=== PATIENT | female | born 1975 | race Caucasian/White ===

== ENCOUNTER 2017-05-12 19:35 | Emergency (ER) | END 2017-05-13 02:10 | disposition home or self-care (01) | DX: R51 Headache (principal); R40.2252 Coma scale, best verbal response, oriented, at arrival to emergency department; R07.9 Chest pain, unspecified; R40.2142 Coma scale, eyes open, spontaneous, at arrival to emergency department; R40.2362 Coma scale, best motor response, obeys commands, at arrival to emergency department | CPT/HCPCS: 70450; 71010; 80053; 83690; 84439; 84443; 84481; 84484; 85025; 93005; Z7502; Z7610 ==

== ENCOUNTER 2017-11-28 13:03 | Emergency (ER) | END 2017-11-28 17:04 | disposition home or self-care (01) ==

== ENCOUNTER 2017-12-18 12:03 | Emergency (ER) | END 2017-12-18 12:22 | disposition home or self-care (01) ==

== ENCOUNTER 2018-08-08 15:59 | Emergency (ER) | END 2018-08-08 19:19 | disposition home or self-care (01) ==

== ENCOUNTER 2019-04-03 12:14 | Emergency (ER) | payer OTHER ==
[~2019-04-03] VITALS: Ht 162.6 cm; Wt 82.7 kg
[~2019-04-03 12:14] MED LIST: ALBU8.5H8 INH; AMOX500C2 PO; ATEN-51 PO; CYCL5TAB PO; IBUP-1542 PO; IBUP-1561 PO; METH10TA5 PO; PRED20TA PO; PROM5SYR2 PO
[2019-04-03 13:01] VITALS: BP 151/74; PULSE 73; RESP 18; Ht 162.6 cm; Wt 82.7 kg
[2019-04-03] MEDS ORDERED: ALBU18HF INHALATION (13:21)
[2019-04-03] MEDS ORDERED: D-ME118S24 PO (13:21)
--- NOTE | 2019-04-03 13:38 | ERD ---
ER Documentation Chief Complaint Chief Complaint cough x1wk, geting worse HPI 43-year-old female presents for cough x1 week. She does have a history of asthma as a child. She states that the cough is dry. She has no fever or runny nose. Denies chest pain or shortness of breath. She took some NyQuil at home without relief. She has had similar symptoms in the past and was given a breathing treatment for an asthma attack and states that she felt better. Currently states that her symptoms are not as bad as previous. No other modifying factors noted, no other treatments tried at home. ROS All systems reviewed and are negative except as per history of present illness. Medications Home Meds Active Scripts Albuterol Sulfate* (Ventolin HFA*) 18 Gm Hfa.aer.ad, 2 PUFF INHALATION Q4H PRN for shortness of breath/cough, #1 INHALER Prov:MELONY WRAY DO 04/03/19 D-Methorphan Hb/P-Epd HCl/Bpm (Enphkdnbyy-Sdonrgetbsw-Ae Syr) 118 Ml Syrup, 5 ML PO Q4H PRN for COUGH, #1 BOTTLE Prov:WRAYMELONY DO 04/03/19 Albuterol Sulfate* (Proair HFA*) 8.5 Gm Hfa.aer.ad, 2 PUFF INH Q4, #1 INHALER Prov:ALRENE LIMON DO 08/08/18 Prednisone* (Prednisone*) 20 Mg Tab, 60 MG PO DAILY for 4 Days, TAB Prov:ARLENE LIMON DO 08/08/18 Cyclobenzaprine Hcl* (Cyclobenzaprine Hcl*) 5 Mg Tablet, 5 MG PO Q8H PRN for PAIN, #15 TAB Prov:MARLENY VAUGHN PA-C 12/18/17 Ibuprofen* (Motrin*) 600 Mg Tab, 600 MG PO Q6, #30 TAB Prov:MARLENY VAUGHN PA-C 12/18/17 Promethazine HCl/Codeine (Prometh-Codein 6.25-10 mg/5 ml) 5 Ml Syrup, 5 ML PO BID PRN for COUGH, #120 ML Prov:SERGIO PRICE MD 11/28/17 Ibuprofen* (Motrin*) 400 Mg Tab, 400 MG PO Q8 PRN for PAIN AND OR ELEVATED TEMP for 4 Days, #12 TAB Prov:SERGIO PRICE MD 11/28/17 Amoxicillin* (Amoxicillin*) 500 Mg Cap, 500 MG PO TID for 7 Days, CAP Prov:SERGIO PRICE MD 11/28/17 Ibuprofen* (Motrin*) 600 Mg Tab, 600 MG PO Q6H PRN for PAIN AND OR ELEVATED TEMP, #30 TAB Prov:MELONY MEZA MD 05/13/17 Reported Medications Atenolol* (Atenolol*) 25 Mg Tablet, 25 MG PO DAILY, #30 TAB 05/12/17 Methimazole* (Methimazole*) 10 Mg Tablet, 10 MG PO DAILY, TAB 05/12/17 Allergies Allergies: Coded Allergies: No Known Allergy (Unverified , 05/12/17) PMhx/Soc History of Surgery: Yes ( , CHOLECYSTECTOMY) Anesthesia Reaction: No Hx Neurological Disorder: No Hx Respiratory Disorders: No Hx Cardiac Disorders: No Hx Psychiatric Problems: No Hx Miscellaneous Medical Probl: No Hx Alcohol Use: No Hx Substance Use: No Hx Tobacco Use: No FmHx Family History: No coronary disease Physical Exam Vitals Vital Signs Date Temp Pulse Resp B/P (MAP) Pulse Ox O2 O2 Flow FiO2 Time Delivery Rate 04/03/19 98.1 73 18 151/74 100 13:01 (99) Physical Exam Const: No acute distress Head: Atraumatic Eyes: Normal Conjunctiva ENT: Normal External Ears, bilateral tympanic membrane intact without erythema or bulging noted, nose and Mouth examination normal, no tonsillar swelling or exudate noted Neck: Full range of motion. No meningismus. Resp: Clear to auscultation bilaterally, no wheezing, rales, rhonchi Cardio: Regular rate and rhythm, no murmurs Skin: No petechiae or rashes Ext: No cyanosis, or edema Neur: Awake and alert Psych: Normal Mood and Affect Procedures/MDM Medical Decision Making: Differential diagnosis includes but not limited to upper respiratory infection, pneumonia, sepsis, meningitis, influenza. Patient appeared well on physical examination, nontoxic appearing. Lungs were clear to auscultation bilaterally. There is low suspicion for pneumonia, sepsis, meningitis. Patient likely has an upper respiratory infection, likely viral. Therefore antibiotics not indicated. Discussed symptomatic treatment with patient who agrees with plan. Patient given prescription for supportive medication(s). Patient advised to follow up with PCP in 1-2 days. Patient advised to return to ED for new or worsening symptoms. Patient stable on discharge from the ED. Disclaimer: Inadvertent spelling and grammatical errors are likely due to EHR/dictation software use and do not reflect on the overall quality of patient care. Also, please note that the electronic time recorded on this note does not necessarily reflect the actual time of the patient encounter. Departure Diagnosis: Primary Impression: Cough Condition: Fair Patient Instructions: Preventing Common Respiratory Infections Referrals: [facility] YOU HAVE RECEIVED A MEDICAL SCREENING EXAM AND THE RESULTS INDICATE THAT YOU DO NOT HAVE A CONDITION THAT REQUIRES URGENT TREATMENT IN THE EMERGENCY DEPARTMENT. FURTHER EVALUATION AND TREATMENT OF YOUR CONDITION CAN WAIT UNTIL YOU ARE SEEN IN YOUR DOCTORS OFFICE WITHIN THE NEXT 1-2 DAYS. IT IS YOUR RESPONSIBILITY TO MAKE AN APPOINTMENT FOR FOLOW-UP CARE. IF YOU HAVE A PRIMARY DOCTOR --you should call your primary doctor and schedule an appointment IF YOU DO NOT HAVE A PRIMARY DOCTOR YOU CAN CALL OUR PHYSICIAN REFERRAL HOTLINE AT IF YOU CAN NOT AFFORD TO SEE A PHYSICIAN YOU CAN CHOSE FROM THE FOLLOWING [facility] [address] [facility]. [facility] [address] [facility] [facility] [address] [facility] [facility] [address] [facility] [address] [facility] [facility]. [address] Additional Instructions: Call your primary care doctor TOMORROW for an appointment during the next 1-2 days.See the doctor sooner or return here if your condition worsens before your appointment time. MELONY WRAY DO Apr 03, 2019 13:38
== END 2019-04-03 13:36 | disposition home or self-care (01) ==
LOC: E/R 12:14
DX: R05 Cough (principal)
CPT/HCPCS: 99283